=== PATIENT | male | born 1995 | race Caucasian/White ===

== ENCOUNTER 2016-11-17 22:23 | Emergency (ER) | payer OTHER ==
[~2016-11-17] VITALS: Ht 182.9 cm; Wt 68.0 kg
[2016-11-18] MEDS ORDERED: TOBREX5 ML LEFT EYE (00:33)
[2016-11-18] MEDS ORDERED: ERYTHROMYC1 APPLICAT LEFT EYE (00:33)
[2016-11-18 00:46] VITALS: BP 129/72
== END 2016-11-18 00:47 | disposition home or self-care (01) ==
LOC: EME 22:23
DX: S05.02XA Injury of conjunctiva and corneal abrasion without foreign body, left eye, initial encounter (principal); Y99.0 Civilian activity done for income or pay; X58.XXXA Exposure to other specified factors, initial encounter
CPT/HCPCS: 99281; 99283